=== PATIENT | male | born 2000 | race Native Hawaiian/Other Pacific Islander ===

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

== ENCOUNTER 2021-07-28 14:00 | Emergency (ER) | payer OTHER ==
[~2021-07-28] VITALS: Ht 165.1 cm; Wt 77.1 kg
[2021-07-28 14:05] VITALS: TEMP 99
[2021-07-28 14:48] LABS: PLATELET COUNT 225 K/uL (142-355)
[2021-07-28 14:52] LABS: POTASSIUM 3.7 mmol/L (3.6-5.2)
[2021-07-28 15:38] VITALS: BP 121/72
== END 2021-07-28 15:38 | disposition home or self-care (01) ==
LOC: ED 14:00
PROVIDERS: Emergency Medicine
DX: Z20.822 Contact with and (suspected) exposure to COVID-19 (principal); Z86.16 Personal history of COVID-19
CPT/HCPCS: 80048; 85027; 87635; 99283; U0003

== ENCOUNTER 2021-09-21 02:05 | Emergency (ER) | payer OTHER ==
[~2021-09-21] VITALS: Ht 315 cm; Wt 71.7 kg
[2021-09-21 03:36] LABS: PLATELET COUNT 208 K/uL (142-355)
[2021-09-21 03:46] LABS: POTASSIUM 3.6 mmol/L (3.6-5.2)
[2021-09-21 05:25] VITALS: BP 121/74; TEMP 98.3
== END 2021-09-21 05:25 | disposition home or self-care (01) ==
LOC: ED 02:05
PROVIDERS: Emergency Medicine Emergency Medical Services
DX: S20.213A Contusion of bilateral front wall of thorax, initial encounter (principal); S29.012A Strain of muscle and tendon of back wall of thorax, initial encounter; S20.223A Contusion of bilateral back wall of thorax, initial encounter; V47.5XXA Car driver injured in collision with fixed or stationary object in traffic accident, initial encounter; Y92.89 Other specified places as the place of occurrence of the external cause
CPT/HCPCS: 36415; 80053; 80307; 80320; 81000; 82150; 83690; 84484; 85027; 93005; 96360; 96361; 96365; 96375; 99284; J1170; J2405; Q9963

== ENCOUNTER 2022-04-06 03:35 | Emergency (ER) | payer OTHER ==
[~2022-04-06] VITALS: Ht 165.1 cm; Wt 72.6 kg
[2022-04-06 04:35] VITALS: BP 128/78; TEMP 98.3
== END 2022-04-06 04:35 | disposition home or self-care (01) ==
LOC: ED 03:35
PROC: 0HQFXZZ Repair Right Hand Skin, External Approach (ICD-10-PCS; principal; 2022-04-06)
DX: S61.210A Laceration without foreign body of right index finger without damage to nail, initial encounter (principal); W26.0XXA Contact with knife, initial encounter; Y92.89 Other specified places as the place of occurrence of the external cause
CPT/HCPCS: 90472; 90715; 99283; J7040

== ENCOUNTER 2022-04-11 12:31 | Emergency (ER) | payer OTHER ==
[~2022-04-11] VITALS: Ht 165.1 cm; Wt 72.6 kg
[2022-04-11 12:36] VITALS: BP 147/86; TEMP 99
[2022-04-11] MEDS ORDERED: 904272561 PO (12:55)
== END 2022-04-11 13:29 | disposition home or self-care (01) ==
LOC: ED 12:31
DX: L03.116 Cellulitis of left lower limb (principal); L03.115 Cellulitis of right lower limb; Z48.02 Encounter for removal of sutures
CPT/HCPCS: 99282

== ENCOUNTER 2022-12-24 15:12 | Emergency (ER) | payer OTHER ==
[~2022-12-24] VITALS: Ht 165.1 cm; Wt 72.6 kg
[~2022-12-24 15:12] MED LIST: 904272561 PO
[2022-12-24 15:20] VITALS: BP 130/90; TEMP 98.5
== END 2022-12-24 16:00 | disposition home or self-care (01) ==
LOC: ED 15:12
DX: F15.10 Other stimulant abuse, uncomplicated (principal); R44.0 Auditory hallucinations
CPT/HCPCS: 99281